=== PATIENT | male | born 1980 | race African-American/Black ===

== ENCOUNTER 2018-01-26 17:53 | Inpatient (IN) ==
[2018-01-26] MEDS ORDERED: MORPHINE 4 MG/1 ML VIAL IV STA ×2 (18:03→18:47)
[2018-01-26] MEDS ORDERED: SODIUM CHLORIDE 0.9% 1,000 ML IV STA (18:03)
[2018-01-26] MEDS ORDERED: ONDANSETRON 4 MG/2 ML VIAL IV STA (18:03)
[2018-01-26 18:44] LABS: Basophils % 0.2 % (0.0-0.8); Eosinophils % 0.1 % (0.00-10.9); Hematocrit 43.7 VOL% (42.0-52.0); Hemoglobin 14.8 GM/DL (14.0-18.0); Immature Granulocytes % 0.3 %; Immature Granulocytes Absolute 0.03 #; Lymphocytes # 0.5 10*3/uL (1.4-4.0); Lymphocytes % 5.2 % (21.2-54.2); Mean Corpuscular HGB Conc 33.9 GM/DL (32-36); Mean Corpuscular Hemoglobin 30 PG (27-34); Mean Corpuscular Volume 88.5 FL (87-102); Mean Platelet Volume 10.2 FL (9.6-12.0); Monocytes # 0.2 10*3/uL (0.11-0.8); Monocytes % 2.6 % (1.7-12.7); Neutrophils # 8.4 10*3/uL (1.4-7.4); Neutrophils % 91.6 % (38.7-73.9); Platelet Count 227 T/CUMM (130-400); Red Blood Count 4.94 MC/CUMM (3.8-5.5); White Blood Count 9.2 T/CUMM (4-12)
[2018-01-26 19:00] LABS: Albumin 3.6 G/DL (3.4-5.0); Bilirubin,Total 0.5 MG/DL (0.2-1.0); Calcium 9.1 MG/DL (8.5-10.1); Osmolality,Calculated 271.8 MOS/KG (273-304); Potassium 3.7 MMOL/L (3.5-5.1); Total Protein 7.4 G/DL (6.4-8.3)
[2018-01-26] MEDS ORDERED: ONDANSETRON 4 MG/2 ML VIAL IV PRN (19:47)
[2018-01-26] MEDS: DEXTROSE 5% LACTATED RINGERS 1,000 ML IV SCH (21:38)
[2018-01-26 21:42] LABS: Eosinophils 1 % (0-10); Lymphocytes 5 % (20-55); Segmented Neutrophils 93 % (50-85); Total Cells Counted 100
[2018-01-26 21:43] LABS: Hypochromasia Slight; Platelet Estimate Normal
[2018-01-27] MEDS: MORPHINE 4 MG/1 ML VIAL IV PRN ×3 (01:08→12:49)
[2018-01-27] MEDS: DEXTROSE 5% LACTATED RINGERS 1,000 ML IV SCH ×4 (05:02→22:33)
[2018-01-27 07:56] LABS: Basophils % 0.5 % (0.0-0.8); Hematocrit 41.6 VOL% (42.0-52.0); Hemoglobin 13.7 GM/DL (14.0-18.0); Immature Granulocytes % 0.5 %; Immature Granulocytes Absolute 0.02 #; Lymphocytes # 0.4 10*3/uL (1.4-4.0); Lymphocytes % 7.9 % (21.2-54.2); Mean Corpuscular HGB Conc 32.9 GM/DL (32-36); Mean Corpuscular Hemoglobin 29 PG (27-34); Mean Corpuscular Volume 89.3 FL (87-102); Monocytes # 0.2 10*3/uL (0.11-0.8); Monocytes % 3.8 % (1.7-12.7); Neutrophils # 3.9 10*3/uL (1.4-7.4); Neutrophils % 87.3 % (38.7-73.9); Platelet Count 220 T/CUMM (130-400); Red Blood Count 4.66 MC/CUMM (3.8-5.5); White Blood Count 4.4 T/CUMM (4-12)
[2018-01-27 08:20] LABS: Calcium 8.7 MG/DL (8.5-10.1); Osmolality,Calculated 274.5 MOS/KG (273-304); Potassium 4.2 MMOL/L (3.5-5.1)
[2018-01-27] MEDS: PANTOPRAZOLE 40 MG TABLET PO SCH (09:00)
[2018-01-28] MEDS: DEXTROSE 5% LACTATED RINGERS 1,000 ML IV SCH ×3 (00:45→15:41)
[2018-01-28 06:16] LABS: Calcium 8.5 MG/DL (8.5-10.1); Osmolality,Calculated 271.7 MOS/KG (273-304); Potassium 3.9 MMOL/L (3.5-5.1)
[2018-01-28] MEDS: MORPHINE 4 MG/1 ML VIAL IV PRN ×3 (08:38→20:33)
[2018-01-28] MEDS: PANTOPRAZOLE 40 MG TABLET PO SCH (08:39)
[2018-01-28] MEDS: ENOXAPARIN 40 MG/0.4 ML SYRINGE SUBCUT SCH (08:39)
[2018-01-28] MEDS ORDERED: FAMOTIDINE 20 MG TABLET PO ONE (09:54)
[2018-01-28] MEDS ORDERED: DIAZEPAM 5 MG TABLET PO ONE (09:54)
[2018-01-28] MEDS ORDERED: LACTATED RINGERS 1,000 ML IV SCH (10:00)
[2018-01-28] MEDS ORDERED: BUPIVACAINE 0.5% /EPI 10 ML VIAL ONE (14:08)
[2018-01-28] MEDS ORDERED: LIDOCAINE 1%/EPI INJ 20 ML VIAL ONE (14:09)
[2018-01-28] MEDS ORDERED: ceFAZolin 1,000 MG VIAL ONE (14:30)
[2018-01-28] MEDS ORDERED: SUGAMMADEX 200 MG/2 ML VIAL IV ONE (15:23)
[2018-01-28] MEDS ORDERED: MIDAZOLAM 2 MG/2 ML VIAL ONE (16:01)
[2018-01-28] MEDS ORDERED: fentaNYL 100 MCG/2 ML VIAL ONE ×2 (16:01→16:06)
[2018-01-28] MEDS ORDERED: SEVOFLURANE 1 UNIT/15 MINUTE INH ONE (16:01)
[2018-01-28] MEDS ORDERED: ACETAMINOPHEN 1,000 MG/100 ML VIAL IV ONE (16:02)
[2018-01-28] MEDS ORDERED: DEXAMETHASONE 10 MG/1 ML VIAL ONE (16:02)
[2018-01-28] MEDS ORDERED: ONDANSETRON 4 MG/2 ML VIAL ONE (16:02)
[2018-01-28] MEDS ORDERED: SUCCINYLCHOLINE 200 MG/10 ML VIAL ONE (16:02)
[2018-01-28] MEDS ORDERED: LACTATED RINGERS 1,000 ML IV ONE (16:02)
[2018-01-28] MEDS ORDERED: ROCURONIUM 100 MG/10 ML VIAL IV ONE (16:02)
[2018-01-28] MEDS ORDERED: KETOROLAC 30 MG/1 ML VIAL ONE (16:02)
[2018-01-28] MEDS ORDERED: MORPHINE 10 MG/1 ML VIAL IV PRN (16:05)
[2018-01-28] MEDS ORDERED: MEPERIDINE 25 MG/1 ML VIAL IV PRN (16:05)
[2018-01-28] MEDS ORDERED: ONDANSETRON 4 MG/2 ML VIAL IV PRN (16:05)
[2018-01-28] MEDS ORDERED: MEPERIDINE 25 MG/1 ML VIAL ONE (16:11)
[2018-01-28 18:00] LABS: Hematocrit 42.6 VOL% (42.0-52.0); Hemoglobin 14.9 GM/DL (14.0-18.0)
[2018-01-28] MEDS: cefOXitin 2,000 MG in SYRINGE 1 EACH IV SCH (20:34)
[2018-01-28] MEDS ORDERED: NALOXONE 0.4 MG/ML VIAL IV PRN (22:34)
[2018-01-28] MEDS: KETOROLAC 30 MG/1 ML VIAL IV SCH (22:53)
[2018-01-28] MEDS ORDERED: MORPHINE PCA 30 MG/30 ML SYRINGE IV SCH (23:00)
[2018-01-28] MEDS: MORPHINE PCA 150 MG/30 ML SYRINGE IV SCH (23:53)
[2018-01-29 00:49] LABS: Hematocrit 37.4 VOL% (42.0-52.0); Hemoglobin 12.7 GM/DL (14.0-18.0)
[2018-01-29] MEDS: DEXTROSE 5% LACTATED RINGERS 1,000 ML IV SCH ×2 (01:44→10:19)
[2018-01-29] MEDS: cefOXitin 2,000 MG in SYRINGE 1 EACH IV SCH ×2 (01:44→09:42)
[2018-01-29 03:32] LABS: Basophils % 0.1 % (0.0-0.8); Hematocrit 35.1 VOL% (42.0-52.0); Hemoglobin 12.4 GM/DL (14.0-18.0); Immature Granulocytes % 0.6 %; Immature Granulocytes Absolute 0.08 #; Lymphocytes # 0.6 10*3/uL (1.4-4.0); Lymphocytes % 4.2 % (21.2-54.2); Mean Corpuscular HGB Conc 35.3 GM/DL (32-36); Mean Corpuscular Hemoglobin 31 PG (27-34); Mean Corpuscular Volume 86.2 FL (87-102); Monocytes # 0.6 10*3/uL (0.11-0.8); Monocytes % 4.6 % (1.7-12.7); Neutrophils # 12.3 10*3/uL (1.4-7.4); Neutrophils % 90.5 % (38.7-73.9); Platelet Count 219 T/CUMM (130-400); Red Blood Count 4.07 MC/CUMM (3.8-5.5); Red Cell Distribution Width 12.6 % (9.3-17.3); White Blood Count 13.6 T/CUMM (4-12)
[2018-01-29 03:58] LABS: Calcium 8.5 MG/DL (8.5-10.1); Osmolality,Calculated 269.1 MOS/KG (273-304)
[2018-01-29] MEDS: KETOROLAC 30 MG/1 ML VIAL IV SCH ×4 (04:20→22:45)
[2018-01-29 04:45] LABS: Band Neutrophils 1 % (0-10); Lymphocytes 5 % (20-55); Segmented Neutrophils 91 % (50-85)
[2018-01-29 04:46] LABS: Platelet Estimate Normal; Total Cells Counted 100
[2018-01-29] MEDS: ENOXAPARIN 40 MG/0.4 ML SYRINGE SUBCUT SCH (06:05)
[2018-01-29 08:07] LABS: Hematocrit 31.1 VOL% (42.0-52.0); Hemoglobin 10.8 GM/DL (14.0-18.0)
[2018-01-29] MEDS: PANTOPRAZOLE 40 MG TABLET PO SCH (09:42)
[2018-01-29] MEDS: DEXT 5% NACL 0.45% KCL 40 MEQ 40 MEQ/1,000 ML BAG IV SCH ×2 (12:05→21:25)
[2018-01-29] MEDS: MORPHINE PCA 150 MG/30 ML SYRINGE IV SCH (23:17)
[2018-01-30] MEDS: KETOROLAC 30 MG/1 ML VIAL IV SCH ×4 (04:25→22:50)
[2018-01-30] MEDS: ENOXAPARIN 40 MG/0.4 ML SYRINGE SUBCUT SCH (06:07)
[2018-01-30 06:18] LABS: Eosinophils % 0.2 % (0.00-10.9); Hematocrit 28.2 VOL% (42.0-52.0); Hemoglobin 9.6 GM/DL (14.0-18.0); Immature Granulocytes % 0.3 %; Immature Granulocytes Absolute 0.02 #; Lymphocytes # 1.3 10*3/uL (1.4-4.0); Lymphocytes % 22.6 % (21.2-54.2); Mean Corpuscular Hemoglobin 30 PG (27-34); Mean Corpuscular Volume 87.3 FL (87-102); Mean Platelet Volume 10.9 FL (9.6-12.0); Monocytes # 0.7 10*3/uL (0.11-0.8); Monocytes % 12.5 % (1.7-12.7); Neutrophils # 3.7 10*3/uL (1.4-7.4); Neutrophils % 64.4 % (38.7-73.9); Platelet Count 204 T/CUMM (130-400); Red Blood Count 3.23 MC/CUMM (3.8-5.5); Red Cell Distribution Width 12.7 % (9.3-17.3); White Blood Count 5.7 T/CUMM (4-12)
[2018-01-30 06:45] LABS: Calcium 8.4 MG/DL (8.5-10.1); Osmolality,Calculated 271.8 MOS/KG (273-304); Potassium 4.5 MMOL/L (3.5-5.1)
[2018-01-30] MEDS ORDERED: BENZOCAINE/MENTHOL LOZENGE 18/BOX PO PRN (09:34)
[2018-01-30] MEDS: DEXT 5% NACL 0.45% KCL 40 MEQ 40 MEQ/1,000 ML BAG IV SCH ×3 (12:18→19:30)
[2018-01-30] MEDS: PANTOPRAZOLE 40 MG TABLET PO SCH (16:08)
[2018-01-31] MEDS: MORPHINE PCA 150 MG/30 ML SYRINGE IV SCH (00:22)
[2018-01-31] MEDS: KETOROLAC 30 MG/1 ML VIAL IV SCH ×2 (04:21→11:19)
[2018-01-31] MEDS: DEXT 5% NACL 0.45% KCL 40 MEQ 40 MEQ/1,000 ML BAG IV SCH ×3 (04:22→21:05)
[2018-01-31 05:40] LABS: Basophils % 0.6 % (0.0-0.8); Eosinophils # 0.2 10*3/uL (0.0-0.87); Eosinophils % 3.2 % (0.00-10.9); Hematocrit 30.8 VOL% (42.0-52.0); Hemoglobin 10.4 GM/DL (14.0-18.0); Immature Granulocytes % 0.2 %; Immature Granulocytes Absolute 0.01 #; Lymphocytes # 1.9 10*3/uL (1.4-4.0); Lymphocytes % 40.6 % (21.2-54.2); Mean Corpuscular HGB Conc 33.8 GM/DL (32-36); Mean Corpuscular Hemoglobin 30 PG (27-34); Mean Corpuscular Volume 89.8 FL (87-102); Mean Platelet Volume 10.7 FL (9.6-12.0); Monocytes # 0.7 10*3/uL (0.11-0.8); Monocytes % 14.3 % (1.7-12.7); Neutrophils # 1.9 10*3/uL (1.4-7.4); Neutrophils % 41.1 % (38.7-73.9); Platelet Count 283 T/CUMM (130-400); Red Blood Count 3.43 MC/CUMM (3.8-5.5); Red Cell Distribution Width 12.8 % (9.3-17.3); White Blood Count 4.7 T/CUMM (4-12)
[2018-01-31] MEDS: ENOXAPARIN 40 MG/0.4 ML SYRINGE SUBCUT SCH (06:01)
[2018-01-31 06:06] LABS: Osmolality,Calculated 278.5 MOS/KG (273-304); Potassium 4.3 MMOL/L (3.5-5.1)
[2018-01-31] MEDS: PANTOPRAZOLE 40 MG TABLET PO SCH (10:07)
[2018-02-01] MEDS: DEXT 5% NACL 0.45% KCL 40 MEQ 40 MEQ/1,000 ML BAG IV SCH ×2 (04:24→18:19)
[2018-02-01] MEDS: ENOXAPARIN 40 MG/0.4 ML SYRINGE SUBCUT SCH (06:36)
[2018-02-01 06:50] LABS: Basophils % 0.7 % (0.0-0.8); Eosinophils # 0.3 10*3/uL (0.0-0.87); Eosinophils % 5.1 % (0.00-10.9); Hematocrit 26.4 VOL% (42.0-52.0); Hemoglobin 8.8 GM/DL (14.0-18.0); Immature Granulocytes % 0.5 %; Immature Granulocytes Absolute 0.03 #; Lymphocytes # 2.4 10*3/uL (1.4-4.0); Lymphocytes % 40.4 % (21.2-54.2); Mean Corpuscular HGB Conc 33.3 GM/DL (32-36); Mean Corpuscular Hemoglobin 30 PG (27-34); Mean Corpuscular Volume 89.2 FL (87-102); Mean Platelet Volume 10.8 FL (9.6-12.0); Monocytes # 0.5 10*3/uL (0.11-0.8); Monocytes % 8.4 % (1.7-12.7); Neutrophils # 2.6 10*3/uL (1.4-7.4); Neutrophils % 44.9 % (38.7-73.9); Platelet Count 303 T/CUMM (130-400); Red Blood Count 2.96 MC/CUMM (3.8-5.5); Red Cell Distribution Width 12.8 % (9.3-17.3); White Blood Count 5.8 T/CUMM (4-12)
[2018-02-01] MEDS: PANTOPRAZOLE 40 MG TABLET PO SCH (09:32)
[2018-02-01] MEDS: NICOTINE 21 MG/24 HR PATCH TRANSDERM SCH (09:32)
[2018-02-02] MEDS: DEXT 5% NACL 0.45% KCL 40 MEQ 40 MEQ/1,000 ML BAG IV SCH ×2 (04:28→10:30)
[2018-02-02] MEDS: ENOXAPARIN 40 MG/0.4 ML SYRINGE SUBCUT SCH (06:20)
[2018-02-02] MEDS: NICOTINE 21 MG/24 HR PATCH TRANSDERM SCH (09:29)
[2018-02-02] MEDS: PANTOPRAZOLE 40 MG TABLET PO SCH (09:29)
[2018-02-02 11:00] VITALS: BP 112/68
== END 2018-02-02 14:35 | disposition home or self-care (01) | DRG 331 ==
LOC: N.ED 17:53 → N.EDINP 19:47 → N.3E 20:53
PROVIDERS: ADMIT Surgery; ATTEND Surgery